=== PATIENT | male | born 1955 | race Caucasian/White ===

== ENCOUNTER 2023-04-12 14:35 | Inpatient (IN) | payer OTHER ==
[2023-04-12 15:14] VITALS: BMI 33.6
[2023-04-12] MEDS ORDERED: METHOCARBAMOL 500 MG TABLET PO PRN (17:29)
[2023-04-12] MEDS ORDERED: BISMUTH SUBSALICYLATE 524 MG/30 ML PO PRN (17:29)
[2023-04-12] MEDS ORDERED: LOPERAMIDE HCL 2 MG CAPSULE PO PRN (17:29)
[2023-04-12] MEDS ORDERED: IBUPROFEN 600 MG TABLET (FP) PO PRN (17:29)
[2023-04-12] MEDS ORDERED: MAGNESIUM HYDROX 2400MG/30ML ORAL SUSPENSION 30 ML CUP PO PRN (17:29)
[2023-04-12] MEDS ORDERED: IBUPROFEN 400 MG TABLET (FP) PO PRN (17:29)
[2023-04-12] MEDS ORDERED: DICYCLOMINE HCL 10 MG CAPSULE PO PRN (17:29)
[2023-04-12] MEDS ORDERED: methaDONE HCL 10 MG TABLET (FOR DETOX USE ONLY) PO ONE ×2 (17:29→20:15)
[2023-04-12] MEDS ORDERED: MAG HYDROX/AL HYDROX/SIMETH 30 ML UNIT-DOSE CUP PO PRN (17:29)
[2023-04-12] MEDS ORDERED: BENZOCAINE/MENTHOL (CHLORASEPTIC ) LOZENGE MM PRN (17:29)
[2023-04-12] MEDS ORDERED: BENZONATATE 200 MG CAPSULE PO PRN (17:29)
[2023-04-12] MEDS ORDERED: ACETAMINOPHEN 325 MG TABLET (FP) PO PRN (17:29)
[2023-04-12] MEDS ORDERED: POLYETHYLENE GLYCOL (HEALTHYLAX) 3350 17 GM PACKET PO PRN (17:29)
[2023-04-12] MEDS ORDERED: NALOXONE HCL 0.4 MG/ML VIAL IM PRN (17:29)
[2023-04-12] MEDS ORDERED: guaiFENesin 600 MG TABLET.ER (FP) PO PRN (17:29)
[2023-04-12] MEDS ORDERED: NALOXONE HCL (KLOXXADO) 8 MG SPRAY NS PRN (17:29)
[2023-04-12] MEDS: cloNIDine HCL 0.1 MG TABLET PO PRN ×2 (18:47→22:37)
[2023-04-12] MEDS: THIAMINE HCL 100 MG TABLET (FP) PO SCH (22:37)
[2023-04-12] MEDS: MELATONIN 5 MG TABLETS PO SCH (22:37)
[2023-04-13] MEDS: NICOTINE 21 MG/24 HOURS TOPICAL PATCH TD SCH (10:13)
[2023-04-13] MEDS: LOSARTAN POTASSIUM 50 MG TABLET PO SCH (10:13)
[2023-04-13] MEDS: amLODIPine BESYLATE 10 MG TABLET (FP) PO SCH (10:13)
[2023-04-13] MEDS: PRENATAL VITAMINS W/ FOLIC ACID TABLET (FP) PO SCH (10:14)
[2023-04-13] MEDS: UMECLIDINIUM/VILANTEROL (ANORO) 62.5/25 MCG INHALER IH SCH (11:18)
[2023-04-13 12:27] LABS: POTASSIUM 4.2 mmol/L (3.5-5.1)
[2023-04-13 12:28] LABS: HEMATOCRIT 43.8 % (35.4-49); HEMOGLOBIN 15.1 GM/dL (11.7-16.9); MCH 31.8 pg (25.7-33.7); MCHC 34.5 g/dl (32.0-35.9); MEAN CELL VOLUME 92.2 fl (80-96); MEAN PLT VOLUME 7.5 fl (7.5-11.1); PLATELET COUNT 211 10^3/uL (134-434); RBC 4.75 M/mm3 (4.00-5.60); RDW 13.8 % (11.9-15.9); WHITE BLOOD COUNT 6.3 K/mm3 (4.0-10.0)
[2023-04-13 12:40] LABS: BLOOD UREA NITROGEN 10.6 mg/dL (7-18); CALCIUM 9.2 mg/dL (8.5-10.1)
[2023-04-13 12:42] LABS: ALBUMIN 3.4 g/dl (3.4-5.0)
[2023-04-13 12:44] LABS: CREATININE 0.8 mg/dL (0.55-1.3)
[2023-04-13 12:45] LABS: BILIRUBIN,TOTAL 0.5 mg/dL (0.2-1); TOT PROT 6.5 g/dl (6.4-8.2)
[2023-04-13] MEDS: ATORVASTATIN CA 10 MG TABLET (FP) PO SCH (22:17)
[2023-04-13] MEDS: cloNIDine HCL 0.1 MG TABLET PO PRN (22:17)
[2023-04-13] MEDS: traZODone HCL 100 MG TABLET (FP) PO SCH (22:17)
[2023-04-13] MEDS: THIAMINE HCL 100 MG TABLET (FP) PO SCH (22:17)
[2023-04-13] MEDS: MELATONIN 5 MG TABLETS PO SCH (22:17)
[2023-04-14] MEDS: LURASIDONE HCL 40 MG TABLET PO SCH (09:23)
[2023-04-14] MEDS: LOSARTAN POTASSIUM 50 MG TABLET PO SCH (09:57)
[2023-04-14] MEDS: amLODIPine BESYLATE 10 MG TABLET (FP) PO SCH (09:57)
[2023-04-14] MEDS: PRENATAL VITAMINS W/ FOLIC ACID TABLET (FP) PO SCH (09:57)
[2023-04-14] MEDS: lamoTRIgine 100 MG TABLET PO SCH (09:58)
[2023-04-14] MEDS: NICOTINE 21 MG/24 HOURS TOPICAL PATCH TD SCH (09:58)
[2023-04-14] MEDS: UMECLIDINIUM/VILANTEROL (ANORO) 62.5/25 MCG INHALER IH SCH (09:58)
[2023-04-14] MEDS ORDERED: methaDONE HCL 10 MG TABLET (FOR DETOX USE ONLY) PO ONE (10:00)
[2023-04-14] MEDS: cloNIDine HCL 0.1 MG TABLET PO PRN (17:48)
[2023-04-14] MEDS: ATORVASTATIN CA 10 MG TABLET (FP) PO SCH (21:19)
[2023-04-14] MEDS: hydrOXYzine PAMOATE 25 MG CAPSULE (FP) PO PRN (21:19)
[2023-04-14] MEDS: traZODone HCL 100 MG TABLET (FP) PO SCH (21:19)
[2023-04-14] MEDS: MELATONIN 5 MG TABLETS PO SCH (21:19)
[2023-04-14] MEDS: THIAMINE HCL 100 MG TABLET (FP) PO SCH (21:20)
[2023-04-15] MEDS: LURASIDONE HCL 40 MG TABLET PO SCH (07:19)
[2023-04-15] MEDS: lamoTRIgine 100 MG TABLET PO SCH (10:08)
[2023-04-15] MEDS: amLODIPine BESYLATE 10 MG TABLET (FP) PO SCH (10:08)
[2023-04-15] MEDS: PRENATAL VITAMINS W/ FOLIC ACID TABLET (FP) PO SCH (10:09)
[2023-04-15] MEDS: UMECLIDINIUM/VILANTEROL (ANORO) 62.5/25 MCG INHALER IH SCH (10:09)
[2023-04-15] MEDS: LOSARTAN POTASSIUM 50 MG TABLET PO SCH (10:09)
[2023-04-15] MEDS: NICOTINE 21 MG/24 HOURS TOPICAL PATCH TD SCH (10:09)
[2023-04-15] MEDS: ONDANSETRON *ODT* 4 MG TABLET SL PRN (12:12)
[2023-04-15] MEDS: THIAMINE HCL 100 MG TABLET (FP) PO SCH (22:00)
[2023-04-15] MEDS: MELATONIN 5 MG TABLETS PO SCH (22:00)
[2023-04-15] MEDS ORDERED: traZODone HCL 50 MG TABLET (FP) PO SCH (22:00)
[2023-04-15] MEDS: ATORVASTATIN CA 10 MG TABLET (FP) PO SCH (22:00)
[2023-04-16] MEDS: ONDANSETRON *ODT* 4 MG TABLET SL PRN ×2 (02:32→11:34)
[2023-04-16] MEDS: hydrOXYzine PAMOATE 25 MG CAPSULE (FP) PO PRN (02:32)
[2023-04-16] MEDS: LURASIDONE HCL 40 MG TABLET PO SCH (07:55)
[2023-04-16] MEDS ORDERED: methaDONE HCL 10 MG TABLET (FOR DETOX USE ONLY) PO ONE (10:00)
[2023-04-16] MEDS: LOSARTAN POTASSIUM 50 MG TABLET PO SCH (10:16)
[2023-04-16] MEDS: PRENATAL VITAMINS W/ FOLIC ACID TABLET (FP) PO SCH (10:16)
[2023-04-16] MEDS: UMECLIDINIUM/VILANTEROL (ANORO) 62.5/25 MCG INHALER IH SCH (10:16)
[2023-04-16] MEDS: amLODIPine BESYLATE 10 MG TABLET (FP) PO SCH (10:16)
[2023-04-16] MEDS: lamoTRIgine 100 MG TABLET PO SCH (10:16)
[2023-04-16] MEDS: NICOTINE 21 MG/24 HOURS TOPICAL PATCH TD SCH (10:17)
[2023-04-16 13:01] VITALS: BP 138/89; PULSE 90; RESP 20; TEMP 98.1
== END 2023-04-16 13:27 | disposition other institution (70) | DRG 897 ==
LOC: YASAS 14:35 → Y3N 17:18
PROVIDERS: ADMIT Allergy & Immunology; ATTEND Surgery
PROC: HZ2ZZZZ Detoxification Services for Substance Abuse Treatment (ICD-10-PCS; principal; 2023-04-12)
DX: F11.20 Opioid dependence, uncomplicated (principal); F12.20 Cannabis dependence, uncomplicated; F15.10 Other stimulant abuse, uncomplicated; F17.210 Nicotine dependence, cigarettes, uncomplicated; F31.9 Bipolar disorder, unspecified; E78.5 Hyperlipidemia, unspecified; I10 Essential (primary) hypertension; J44.9 Chronic obstructive pulmonary disease, unspecified
CPT/HCPCS: 36415; 80053; 83036; 85027; 86780; 87635; 93005; 93010; Q0162